=== PATIENT | female | born 1985 | race African-American/Black ===

== ENCOUNTER 2019-08-10 11:38 | Emergency (ER) | payer OTHER ==
[~2019-08-10] VITALS: Ht 170.2 cm; Wt 59.0 kg
[2019-08-10] MEDS: PREDNISONE 20MG TABLET PO STA (15:45)
[2019-08-10] MEDS: DIPHENHYDRAMINE 25MG CAPSULE PO ONE (15:46)
[2019-08-10 15:47] VITALS: BP 147/92
== END 2019-08-10 15:48 | disposition home or self-care (01) ==
LOC: ER 11:38
DX: T78.40XA Allergy, unspecified, initial encounter (principal); B86 Scabies; I10 Essential (primary) hypertension; Z88.0 Allergy status to penicillin; X58.XXXA Exposure to other specified factors, initial encounter
CPT/HCPCS: 99283; J7512; Q0163

== ENCOUNTER 2021-11-10 17:58 | Emergency (ER) | payer OTHER ==
[~2021-11-10] VITALS: Ht 177.8 cm; Wt 56.0 kg
[2021-11-10] MEDS ORDERED: ACETAMINOPHEN 325MG TABLET PO ONE (20:30)
[2021-11-10] MEDS ORDERED: KETOROLAC 15MG/ML VIAL IV ONE (20:30)
[2021-11-10 21:01] LABS: BASOPHILS % 0.6 % (0.0-2.0); EOSINOPHILS % 0.6 % (0.0-5.0); HEMATOCRIT. 34.6 % (36.0-48.0); HEMOGLOBIN. 11.3 g/dL (12.0-16.0); LYMPHOCYTES % 30.2 % (20.0-50.0); MEAN PLATELET VOLUME 8.9 fl (7.4-10.4); MONOCYTES % 7.9 % (2.0-8.0); NEUTROPHILS % 60.7 % (40.0-76.0); PLATELET 207 x1000/uL (130-400); RED BLOOD CELL COUNT 3.88 mill/uL (4.2-5.4); RED CELL DISTRIBUTION WIDTH 13.8 % (11.6-14.6)
[2021-11-10 21:08] LABS: CHLORIDE 111 mEq/L (98-107)
[2021-11-10 21:15] LABS: HCG SCREEN NEGATIVE
[2021-11-10] MEDS ORDERED: IOHEXOL-350 100 ML BOTTLE ONE (23:16)
[2021-11-11] VITALS: BP 133/90
== END 2021-11-11 00:48 | disposition home or self-care (01) ==
LOC: ER 17:58
DX: R07.89 Other chest pain (principal); I10 Essential (primary) hypertension; Z88.0 Allergy status to penicillin
CPT/HCPCS: 36415; 71045; 71275; 80053; 83880; 84484; 84703; 85025; 85379; 93005; 96374; 99285; J1885; Q9967

== ENCOUNTER 2023-08-26 19:28 | Emergency (ER) | payer OTHER ==
[~2023-08-26] VITALS: Ht 170.2 cm; Wt 59.0 kg
[2023-08-26 19:36] VITALS: TEMP 98.3; O2SAT 99
[2023-08-26] MEDS ORDERED: ONDANSETRON HCL 4MG/2ML INJ IM ONE (21:45)
[2023-08-26] MEDS ORDERED: IBUPROFEN 600MG TABLET PO ONE (22:00)
[2023-08-26 22:37] VITALS: BP 177/108; PULSE 84; RESP 18
[2023-08-26] MEDS ORDERED: IBUP-2029 MT (23:05)
[2023-08-26] MEDS ORDERED: GUAI600T26 MT (23:05)
== END 2023-08-26 23:40 | disposition home or self-care (01) ==
LOC: ER 19:28
DX: R51.9 Headache, unspecified (principal); R05.9 Cough, unspecified; I10 Essential (primary) hypertension; J45.909 Unspecified asthma, uncomplicated
CPT/HCPCS: 99283; 71045; 81025; 96372; J2405